=== PATIENT | female | born 1960 | race Caucasian/White ===

== ENCOUNTER 2024-10-12 10:30 | Outpatient (CLI) | payer MEDICARE ==
[2024-10-12 11:31] LABS: #Basophils 0.04 10x3/uL (0.0-0.2); %Basophils 0.6 % (0.0-1.0); %Eosinophils 0.9 % (0.0-10.0); %Lymphocytes 13.1 % (21.0-51.0); %Monocytes 6.9 % (0.0-10.0); %Neutrophils 78.2 % (42.0-75.0); Hematocrit 32.1 % (36.0-47.0); Hemoglobin 11.1 g/dL (12.0-16.0); Mean Corpuscular HGB CONC 34.6 g/dL (32.0-36.0); Mean Corpuscular Hemoglobin 28.8 pg (27.0-31.0); Mean Corpuscular Volume 83.4 fL (78.0-98.0); Platelet Count 293 10x3/uL (130-400); RBC Distribution Width 12.7 % (11.5-14.5); Red Blood Cell (RBC) Count 3.85 mill/uL (4.20-5.40)
[2024-10-12 11:50] LABS: Anion Gap 14 mmol/L (10-20); BUN (Urea Nitrogen) 14 mg/dL (9.8-20.1); Calc. Creatinine Clearance 0 mL/min (70-130); Calcium 9.7 mg/dL (7.8-10.44); Carbon Dioxide 24 mmol/L (23-31); Chloride 92 mmol/L (98-107); Estimated GFR 77; Glucose 112 mg/dL (80-115); Potassium 4.7 mmol/L (3.5-5.1); Prothrombin Time 12.6 sec (12.0-14.7); Sodium 125 mmol/L (136-145)
[2024-10-12 11:51] LABS: PTT 30.1 sec (22.9-36.1)
== END 2024-10-12 10:31 | disposition home or self-care (01) ==
LOC: LABBT 10:30
PROVIDERS: ATTEND Neurological Surgery
DX: Z01.812 Encounter for preprocedural laboratory examination (principal); G91.9 Hydrocephalus, unspecified
CPT/HCPCS: 80048; 85025; 85610; 85730

== ENCOUNTER 2024-10-12 10:30 | Inpatient (IN) | payer MEDICARE ==
[2024-10-13] MEDS ORDERED: Vancomycin 1 GM VIAL ONE (06:10)
[2024-10-13] MEDS ORDERED: Bacitracin Zinc Ointment 30 gm TUBE ONE (06:10)
[2024-10-13] MEDS ORDERED: EPINEPHrine 1 MG/ML VIAL ONE (06:10)
[2024-10-13] MEDS ORDERED: Lidocaine 1% (PF) 30 ML VIAL ONE (06:10)
[2024-10-13] MEDS ORDERED: Thrombin 5000 UNITS/5 ML VIAL ONE (06:11)
[2024-10-13] MEDS ORDERED: Vancomycin 1 GM/200 ML (FROZEN) BAG ONE (06:48)
[2024-10-13] MEDS ORDERED: MINERAL OIL/WHITE PETROLATUM 3.5 GM TUBE ONE (06:50)
[2024-10-13] MEDS ORDERED: Lidocaine 2% PF 5 ML VIAL ONE (06:50)
[2024-10-13] MEDS ORDERED: Rocuronium Bromide 10 MG/ML (10ML VIAL) ONE (06:50)
[2024-10-13] MEDS ORDERED: fentaNYL PF 100 MCG/2 ML SYRINGE ONE ×2 (06:50→07:42)
[2024-10-13] MEDS ORDERED: PROPOFOL 20 ML ONE (06:51)
[2024-10-13 06:54] LABS: Anion Gap 14 mmol/L (10-20); BUN (Urea Nitrogen) 14 mg/dL (9.8-20.1); Calc. Creatinine Clearance 57 mL/min (70-130); Calcium 9.3 mg/dL (7.8-10.44); Carbon Dioxide 23 mmol/L (23-31); Chloride 96 mmol/L (98-107); Estimated GFR 66; Glucose 99 mg/dL (80-115); Potassium 4.6 mmol/L (3.5-5.1); Sodium 128 mmol/L (136-145)
[2024-10-13] MEDS ORDERED: Promethazine HCl 25 MG/ML VIAL IM PRN (06:54)
[2024-10-13] MEDS ORDERED: Mag-Al 1200 mg/1200 mg/30 ML UDCUP PO PRN (06:54)
[2024-10-13] MEDS ORDERED: Ondansetron PF 4 MG/2 ML Vial IVP PRN (06:54)
[2024-10-13] MEDS ORDERED: Docusate 100 MG CAP PO PRN (06:54)
[2024-10-13] MEDS ORDERED: cloNIDine 0.1 MG TAB PO PRN (06:59)
[2024-10-13] MEDS ORDERED: Ondansetron PF 4 MG/2 ML Vial ONE (07:26)
[2024-10-13] MEDS ORDERED: ePHEDrine Sulfate 50 MG/10 ML VIAL ONE (07:26)
[2024-10-13] MEDS ORDERED: Dexamethasone 4 mg/ml Vial ONE (07:26)
[2024-10-13] MEDS ORDERED: Glycopyrrolate 0.2 MG/ML 5 ML SYRINGE ONE (07:35)
[2024-10-13] MEDS ORDERED: SUGAMMADEX SODIUM 200 MG/2 ML VIAL ONE (07:37)
[2024-10-13] MEDS ORDERED: PHENYLEPHRINE-NS 100 MCG/ML 10 ML SYRINGE ONE (08:33)
[2024-10-13] MEDS ORDERED: HYDROcodone/Acetaminophen 7.5/325 mg Tablet ONE (13:35)
[2024-10-13] MEDS: HYDROcodone/Acetaminophen 7.5/325 mg Tablet PO PRN (13:40)
[2024-10-13 14:53] VITALS: BMI 21.7
[2024-10-13] MEDS: Vancomycin 1 GM in Premix 1 BAG IVPB SCH (15:52)
[2024-10-13] MEDS: Vancomycin HCl 20 MG, Gentamicin (PEDI) 8 MG, Admixture Fee 1 EACH in Sodium Chloride 0... FS SCH (15:52)
[2024-10-13] MEDS: Sodium Chloride 0.9% 1,000 ML IV SCH (15:53)
[2024-10-13] MEDS: Valsartan 80 MG TAB PO SCH (15:53)
[2024-10-13] MEDS: Spironolactone 100 MG TAB PO SCH (15:53)
[2024-10-13] MEDS: NIFEdipine XL 60 MG ER.TAB PO SCH (15:53)
[2024-10-13] MEDS: Pantoprazole DR 40 MG TAB PO SCH (15:53)
[2024-10-13] MEDS: Vancomycin (BATCH) 1.5 GM in Premix 1 BAG IVPB SCH (17:25)
[2024-10-13] MEDS: diphenhydrAMINE 50 MG/ML VIAL IVP PRN (22:04)
[2024-10-14] MEDS: Levothyroxine Sodium 88 MCG TAB PO SCH (06:22)
[2024-10-14 12:43] VITALS: BP 150/69; TEMP 97.5
[2024-10-15] MEDS ORDERED: FLU (Fluad Triv) TS24-25 (65UP)/MF59C/PF 45 MCG/0.5 ML Syringe IM ONE (09:00)
== END 2024-10-14 13:27 | disposition home or self-care (01) | DRG 33 ==
LOC: SURG A 10-13 05:39 → SURG B 10-13 14:41
PROVIDERS: ADMIT Neurological Surgery; ATTEND Neurological Surgery
PROC: 00160J6 Bypass Cerebral Ventricle to Peritoneal Cavity with Synthetic Substitute, Open Approach (ICD-10-PCS; principal; 2024-10-13)
DX: G91.2 (Idiopathic) normal pressure hydrocephalus (principal); E78.00 Pure hypercholesterolemia, unspecified; F32.A Depression, unspecified; F41.9 Anxiety disorder, unspecified; E03.9 Hypothyroidism, unspecified; R41.81 Age-related cognitive decline; Z79.899 Other long term (current) drug therapy; Z79.890 Hormone replacement therapy; Z88.0 Allergy status to penicillin
CPT/HCPCS: 80048; A6258; C1889; J0171; J1100; J1200; J2405; J2704; J3370; J7030

== ENCOUNTER 2024-11-17 07:35 | Outpatient (CLI) | payer MEDICARE | END 2024-11-17 07:36 | disposition home or self-care (01) | LOC: CT 07:35 | PROVIDERS: ATTEND Neurological Surgery | DX: G91.9 Hydrocephalus, unspecified (principal); I51.7 Cardiomegaly; G96.00 Cerebrospinal fluid leak, unspecified; Z95.828 Presence of other vascular implants and grafts | CPT/HCPCS: 70450 ==

== ENCOUNTER 2025-06-19 14:02 | Emergency (ER) | payer MEDICARE ==
[~2025-06-19 14:02] MED LIST: Iopamidol-370 76% 500 ML MDV (1 ML CHARGE) ONE
[2025-06-19 16:32] LABS: #Basophils 0.03 10x3/uL (0.0-0.2); #Eosinophils Less than 0.03 10x3/uL (0.0-0.7); #Monocytes 0.42 10x3/uL (0.11-0.59); #Neutrophils 6.65 10x3/uL (1.40-6.50); %Basophils 0.4 % (0.0-1.0); %Eosinophils 0.3 % (0.0-10.0); %Lymphocytes 7.8 % (21.0-51.0); %Monocytes 5.4 % (0.0-10.0); %Neutrophils 85.8 % (42.0-75.0); Hematocrit 31.8 % (36.0-47.0); Hemoglobin 10.4 g/dL (12.0-16.0); Mean Corpuscular Hemoglobin 29.4 pg (27.0-31.0); Mean Corpuscular Volume 89.8 fL (78.0-98.0); Platelet Count 392 10x3/uL (130-400); Red Blood Cell (RBC) Count 3.54 mill/uL (4.20-5.40); White Blood Cell (WBC) Count 7.74 10x3/uL (4.8-10.8)
[2025-06-19 16:48] LABS: ALT (SGPT) 9 U/L (Less than 34); AST (SGOT) 19 U/L (11-34); Albumin 4.8 g/dL (3.1-4.5); Alkaline Phosphatase 58 U/L (40-110); Anion Gap 14 mmol/L (10-20); BUN (Urea Nitrogen) 36 mg/dL (9.8-20.1); Bilirubin, Total 0.3 mg/dL (0.3-1.2); Calc. Creatinine Clearance 0 mL/min (70-130); Calcium 9.9 mg/dL (7.8-10.44); Carbon Dioxide 22 mmol/L (23-31); Chloride 102 mmol/L (98-107); Globulin 3.7 g/dL (2.4-3.5); Glucose 122 mg/dL (80-115); Potassium 5.3 mmol/L (3.5-5.1); Sodium 133 mmol/L (136-145)
[2025-06-19 16:57] LABS: CAUTI Indications for Culture Dysuria,urgency,freq; Glucose, Urine (Dipstick) Normal (Negative); Leukocyte 250 Leu/uL (Negative); Protein, Urine (Dipstick) Negative (Neg-Trace); RBC/HPF 0-3 HPF (0-3); Specific Gravity, Urine 1.012 (1.002-1.036); WBC/HPF 0-3 HPF (0-3)
[2025-06-19 16:59] LABS: Bacteria/HPF 1+ HPF (None Seen)
[2025-06-19 17:01] LABS: Urine Culture Reflex No No
[2025-06-19] MEDS ORDERED: Acetaminophen 500 MG TAB ONE (18:10)
[2025-06-19 18:57] LABS: Magnesium 2.4 mg/dL (1.6-2.6)
[2025-06-19] MEDS ORDERED: Ciprofloxacin 500 MG TAB ONE (20:43)
== END 2025-06-19 20:48 | disposition home or self-care (01) ==
LOC: ERS 14:02
DX: N39.0 Urinary tract infection, site not specified (principal); E86.0 Dehydration; I10 Essential (primary) hypertension; Z79.899 Other long term (current) drug therapy; Z79.890 Hormone replacement therapy
CPT/HCPCS: 36415; 74177; 80053; 81001; 83735; 84484; 85025; 93005

== ENCOUNTER 2025-07-17 14:06 | Outpatient (CLI) | payer MEDICARE | END 2025-07-17 14:07 | disposition home or self-care (01) | LOC: EEG 14:06 | PROVIDERS: ATTEND Psychiatry & Neurology Neurology | DX: G91.2 (Idiopathic) normal pressure hydrocephalus (principal); R41.89 Other symptoms and signs involving cognitive functions and awareness | CPT/HCPCS: 95819 ==